=== PATIENT | female | born 1950 | race Caucasian/White ===

== ENCOUNTER → 2017-03-20 | Outpatient (CLI) | payer BC ==
[~2017-03-20] MED LIST: ACETAMINOPHEN; ACIPHEX20 M1 PO; AGGRENOX CAPSUL1 CAP PO; ALBUTEROL0.09 MG/A1 IH; ARTHROTEC; ARTHROTEC 775 MG/TAB PO; BUTALBITAL; CAFFEINE; CIPRO; CIPRO 500MG TA500 MG PO; CLARITIN; CLARITIN10 MG PO; FIORICET 325 MG1 TA1 PO; FOSAMAX 70MG TA70 MG PO; FOSAMAX70 MG PO; LORTAB 5/500 501 TAB; MIDRIN; PERCOCET 5/321 UDTAB PO; PHENERGAN 25 TA25 MG PO; PHENERGAN25 MG RC; PLAVIX 75MG TAB75 MG PO; PROAIR HFA0.09 MG/AC IH; RT ADVAIR 228 DISKUS IH; TYLENOL 500MG500 MG PO; WELCHOL625 MG PO; ZOLOFT 50MG50 MG PO; ZYRTEC-D 5 MG-11 TER PO
== END ==
LOC: MC.RAD 03-18 08:20
DX: Z12.31 Encounter for screening mammogram for malignant neoplasm of breast (principal)

== ENCOUNTER → 2017-07-09 | Outpatient (REF) | LOC: WSOH 09:58 | DX: Z02.1 Encounter for pre-employment examination (principal) ==

== ENCOUNTER → 2017-07-15 | Outpatient (REF) | LOC: WSOH 16:00 | DX: Z02.89 Encounter for other administrative examinations (principal) ==

== ENCOUNTER → 2017-07-18 | Outpatient (REF) | LOC: WSOH 10:23 | DX: Z11.1 Encounter for screening for respiratory tuberculosis (principal) ==

== ENCOUNTER 2017-08-05 13:20 | Outpatient (CLI) | payer MEDICARE, BC ==
[~2017-08-05] VITALS: Ht 167.6 cm; Wt 83.9 kg
[2017-08-05 13:50] VITALS: BP 154/91; PULSE 66
[2017-08-05 15:25] VITALS: BP 165/80; PULSE 69
== END 2017-08-05 17:20 | disposition home or self-care (01) ==
LOC: COL.RAD 13:20
DX: M54.16 Radiculopathy, lumbar region (principal); M71.38 Other bursal cyst, other site; M48.06 Spinal stenosis, lumbar region
CPT/HCPCS: J3301

== ENCOUNTER → 2018-03-23 | Outpatient (CLI) | payer MEDICARE, BC | LOC: MC.RAD 06:57 | DX: Z12.31 Encounter for screening mammogram for malignant neoplasm of breast (principal) ==

== ENCOUNTER → 2018-11-23 | Outpatient (CLI) | payer MEDICARE, BC ==
[~2018-11-23] VITALS: Ht 167.6 cm; Wt 87.5 kg
[2018-11-23 07:15] VITALS: BP 161/84; PULSE 85
[2018-11-23 08:51] VITALS: BP 166/93; PULSE 83
--- NOTE | 2018-11-23 08:55 | NUR ---
PT STATES THAT THE NUMBNESS IS NEARLY GONE. NO ACHING IN THE RIGHT LEG. PT ABLE TO STAND AND MOVE AROUND THE ROOM. WENT OVER DC INFORMATION AGAIN WITH PT AND SPOUSE. PT GIVEN A COPY OF THE DC INFORMATION. PT TAKEN TO [facility]
== END ==
LOC: COL.RAD 06:49
DX: M71.30 Other bursal cyst, unspecified site (principal)
CPT/HCPCS: J3301

== ENCOUNTER 2019-01-15 11:00 | Outpatient (RCR) | payer MEDICARE, BC | END 2019-03-25 | disposition home or self-care (01) | LOC: WSC | DX: M48.00 Spinal stenosis, site unspecified (principal); M47.9 Spondylosis, unspecified; Z79.52 Long term (current) use of systemic steroids; Z79.899 Other long term (current) drug therapy | CPT/HCPCS: G8978-GP; G8979-GP ==

== ENCOUNTER → 2019-03-24 | Outpatient (CLI) | payer MEDICARE, BC | LOC: MC.RAD 10:02 | DX: Z12.31 Encounter for screening mammogram for malignant neoplasm of breast (principal) ==

== ENCOUNTER → 2020-05-04 | Outpatient (CLI) | payer MEDICARE, BC | LOC: MC.RAD 12:21 | DX: Z12.31 Encounter for screening mammogram for malignant neoplasm of breast (principal) ==

== ENCOUNTER → 2020-09-25 | Outpatient (CLI) | payer MEDICARE, BC | LOC: COL.RAD 11:21 | DX: M41.86 Other forms of scoliosis, lumbar region (principal); M71.38 Other bursal cyst, other site ==

== ENCOUNTER → 2020-12-12 | Outpatient (CLI) | payer MEDICARE, BC | LOC: MHCPAIN 14:18 | DX: M47.816 Spondylosis without myelopathy or radiculopathy, lumbar region (principal); M53.3 Sacrococcygeal disorders, not elsewhere classified; G89.29 Other chronic pain | CPT/HCPCS: G0463 ==

== ENCOUNTER → 2021-05-24 | Outpatient (CLI) | payer MEDICARE, BC | LOC: MC.RAD 11:23 | DX: Z12.31 Encounter for screening mammogram for malignant neoplasm of breast (principal) ==

== ENCOUNTER 2021-06-12 13:45 | Outpatient (RCR) | payer MEDICARE, BC | END 2021-07-04 09:35 | disposition home or self-care (01) | LOC: PT.GENESIS 13:45 | DX: R26.89 Other abnormalities of gait and mobility (principal); Z91.81 History of falling ==

== ENCOUNTER → 2022-05-28 | Outpatient (CLI) | payer MEDICARE, BC | LOC: MC.RAD 13:59 | DX: Z12.31 Encounter for screening mammogram for malignant neoplasm of breast (principal) ==

== ENCOUNTER 2022-06-05 15:30 | Outpatient (RCR) | payer MEDICARE, BC | END 2022-06-23 | disposition home or self-care (01) | LOC: PT.GENESIS | DX: R26.89 Other abnormalities of gait and mobility (principal) ==

== ENCOUNTER → 2023-02-26 | Outpatient (CLI) | payer MEDICARE, BC | LOC: COL.RAD 08:59 | DX: M47.812 Spondylosis without myelopathy or radiculopathy, cervical region (principal); M48.02 Spinal stenosis, cervical region; M79.609 Pain in unspecified limb; R20.2 Paresthesia of skin; G43.109 Migraine with aura, not intractable, without status migrainosus ==